=== PATIENT | male | born 1945 | race Caucasian/White ===

== ENCOUNTER 2018-05-06 11:20 | Outpatient (CLI) | payer MEDICARE, OTHER ==
[2018-05-06] VITALS (21 sets, daily range): BP systolic 137–185; BP diastolic 91–112
[~2018-05-06 11:20] MED LIST: ASPI-1265 PO; HYDR12.5 PO; LEVO25TA2 PO; TICA90TA PO
== END 2018-05-06 23:59 | disposition home or self-care (01) ==
LOC: CARD DIAG 11:20
PROVIDERS: ATTEND Internal Medicine Cardiovascular Disease
DX: R55 Syncope and collapse (principal); I10 Essential (primary) hypertension; Z79.82 Long term (current) use of aspirin
CPT/HCPCS: 93660